=== PATIENT | female | born 1955 | race Two or more races ===

== ENCOUNTER 2017-11-02 10:10 | Outpatient (CLI) | payer OTHER | END 2017-11-02 11:36 | disposition home or self-care (01) | LOC: MAMO-SONO 10:10 | DX: N62 Hypertrophy of breast (principal); Z12.31 Encounter for screening mammogram for malignant neoplasm of breast; E03.9 Hypothyroidism, unspecified ==

== ENCOUNTER → 2017-11-02 | Outpatient (CLI) | payer OTHER ==
[~2017-11-02] MED LIST: ANGELIQ 0.5 MG/1 TAB; ARTHROTEC 751 TAB.EC; DIOVAN160 M1; PROTONIX40 MG
== END | disposition home or self-care (01) ==
LOC: LAB 10:25
DX: I10 Essential (primary) hypertension (principal); E11.9 Type 2 diabetes mellitus without complications; E03.8 Other specified hypothyroidism; E78.2 Mixed hyperlipidemia; M81.0 Age-related osteoporosis without current pathological fracture

== ENCOUNTER 2018-02-11 09:52 | Outpatient (CLI) | payer OTHER | END 2018-02-11 09:54 | disposition home or self-care (01) | LOC: SONOGRAMA 09:52 | DX: E04.1 Nontoxic single thyroid nodule (principal) ==

== ENCOUNTER 2018-02-23 13:39 | Outpatient (CLI) | payer OTHER | END 2018-02-23 14:00 | disposition home or self-care (01) | LOC: NUCLEAR 13:39 | DX: M81.0 Age-related osteoporosis without current pathological fracture (principal) ==

== ENCOUNTER 2018-05-14 08:32 | Outpatient (CLI) | payer OTHER | END 2018-05-14 08:50 | disposition home or self-care (01) | LOC: NUCLEAR 08:32 | DX: I10 Essential (primary) hypertension (principal); R07.89 Other chest pain ==

== ENCOUNTER → 2018-05-14 | Outpatient (CLI) | payer OTHER | END | disposition home or self-care (01) | LOC: RAD 09:00 | DX: M12.88 Other specific arthropathies, not elsewhere classified, other specified site (principal); M19.90 Unspecified osteoarthritis, unspecified site ==

== ENCOUNTER 2018-07-14 09:09 | Outpatient (CLI) | payer OTHER | END 2018-07-14 15:31 | disposition home or self-care (01) | LOC: LAB 09:09 → RAD 14:58 → LAB 15:31 | DX: D68.8 Other specified coagulation defects (principal); E78.2 Mixed hyperlipidemia; N39.0 Urinary tract infection, site not specified; R07.89 Other chest pain; I10 Essential (primary) hypertension ==

== ENCOUNTER 2018-07-23 08:18 | Outpatient (CLI) | payer OTHER | END 2018-07-23 09:00 | disposition home or self-care (01) | LOC: NUCLEAR 08:18 | DX: I11.9 Hypertensive heart disease without heart failure (principal); R07.89 Other chest pain | CPT/HCPCS: 78452; 93017; A9500 ==

== ENCOUNTER 2019-03-17 14:27 | Outpatient (CLI) | payer OTHER | END 2019-03-17 14:31 | disposition home or self-care (01) | LOC: MAMO-SONO 14:27 | DX: Z12.31 Encounter for screening mammogram for malignant neoplasm of breast (principal); Z87.898 Personal history of other specified conditions; N63.11 Unspecified lump in the right breast, upper outer quadrant; N60.11 Diffuse cystic mastopathy of right breast; N60.12 Diffuse cystic mastopathy of left breast; E03.8 Other specified hypothyroidism ==

== ENCOUNTER 2019-06-28 16:22 | Emergency (ER) | payer OTHER ==
[~2019-06-28] VITALS: Ht 157.5 cm; Wt 73.5 kg
[2019-06-28] MEDS ORDERED: AVALIDE 300-121 EACH PO (17:08)
[2019-06-28] MEDS ORDERED: PROTONIX40 M1 PO (17:09)
[2019-06-28] MEDS ORDERED: FORTAMET1000 MG (17:09)
[2019-06-28] MEDS ORDERED: GLIMEPIRIDE4 MG (17:09)
[2019-06-28] MEDS ORDERED: SINGULAIR 10MG10 MG PO (17:09)
[2019-06-28] MEDS ORDERED: ALEGRA (17:10)
[2019-06-28] MEDS ORDERED: PEPCID AC20 MG PO (17:10)
[2019-06-28] MEDS ORDERED: LOVAZA1 GM PO (17:11)
[2019-06-28] MEDS ORDERED: LIPITOR40 MG PO (17:11)
== END 2019-06-28 20:32 | disposition home or self-care (01) ==
LOC: ER 16:22
DX: M25.561 Pain in right knee (principal)

== ENCOUNTER → 2019-06-29 | Outpatient (CLI) | payer OTHER ==
[~2019-06-29] MED LIST changes: +ALEGRA; +AVALIDE 300-121 EACH PO; +FORTAMET1000 MG; +GLIMEPIRIDE4 MG; +LIPITOR40 MG PO; +LOVAZA1 GM PO; +PEPCID AC20 MG PO; +PROTONIX40 M1 PO; +SINGULAIR 10MG10 MG PO
== END | disposition home or self-care (01) ==
LOC: SONOGRAMA 13:54
DX: S83.91XA Sprain of unspecified site of right knee, initial encounter (principal)

== ENCOUNTER → 2021-01-03 08:22 | Outpatient (CLI) | payer OTHER | END | disposition home or self-care (01) | LOC: LAB 07:52 | PROVIDERS: ATTEND Internal Medicine Cardiovascular Disease | DX: I10 Essential (primary) hypertension (principal); E11.9 Type 2 diabetes mellitus without complications; E03.8 Other specified hypothyroidism; E78.2 Mixed hyperlipidemia; Z12.11 Encounter for screening for malignant neoplasm of colon; E55.9 Vitamin D deficiency, unspecified ==

== ENCOUNTER 2021-01-03 12:38 | Outpatient (CLI) | payer OTHER | END 2021-01-03 12:39 | disposition home or self-care (01) | LOC: NUCLEAR 12:38 | PROVIDERS: ATTEND Internal Medicine Cardiovascular Disease | DX: M81.0 Age-related osteoporosis without current pathological fracture (principal); E55.9 Vitamin D deficiency, unspecified; E11.9 Type 2 diabetes mellitus without complications ==

== ENCOUNTER 2021-01-03 13:31 | Outpatient (CLI) | payer OTHER | END 2021-01-03 13:37 | disposition home or self-care (01) | LOC: MAMO-SONO 13:31 | PROVIDERS: ATTEND Internal Medicine Cardiovascular Disease | DX: E04.2 Nontoxic multinodular goiter (principal); Z12.31 Encounter for screening mammogram for malignant neoplasm of breast; E03.8 Other specified hypothyroidism; N64.59 Other signs and symptoms in breast ==

== ENCOUNTER 2021-02-07 10:29 | Outpatient (CLI) | payer OTHER | END 2021-02-07 10:32 | disposition home or self-care (01) | LOC: SONOGRAMA 10:29 | PROVIDERS: ATTEND Internal Medicine Cardiovascular Disease | DX: R10.84 Generalized abdominal pain (principal) ==

== ENCOUNTER 2021-03-25 08:58 | Outpatient (CLI) | payer OTHER | END 2021-03-25 09:03 | disposition home or self-care (01) | LOC: SONOGRAMA 08:58 | PROVIDERS: ATTEND Pathology Anatomic Pathology & Clinical Pathology | DX: E04.8 Other specified nontoxic goiter (principal); D34 Benign neoplasm of thyroid gland ==

== ENCOUNTER 2022-03-18 16:19 | Emergency (ER) | payer OTHER ==
[~2022-03-18] VITALS: Ht 154.9 cm; Wt 68.9 kg
== END 2022-03-18 19:33 | disposition left against medical advice (07) ==
LOC: ER 16:19
DX: R00.2 Palpitations (principal); Z88.0 Allergy status to penicillin; J45.909 Unspecified asthma, uncomplicated; E78.00 Pure hypercholesterolemia, unspecified; I10 Essential (primary) hypertension

== ENCOUNTER 2022-05-26 11:09 | Outpatient (CLI) | payer OTHER | END 2022-05-26 11:15 | disposition home or self-care (01) | LOC: MAMO-SONO 11:09 | PROVIDERS: ATTEND Internal Medicine Cardiovascular Disease | DX: Z12.31 Encounter for screening mammogram for malignant neoplasm of breast (principal); E03.9 Hypothyroidism, unspecified; N63.11 Unspecified lump in the right breast, upper outer quadrant ==

== ENCOUNTER 2023-03-30 13:33 | Outpatient (CLI) | payer OTHER | END 2023-03-30 13:40 | disposition home or self-care (01) | LOC: SONOGRAMA 13:33 | PROVIDERS: ATTEND Internal Medicine Cardiovascular Disease | DX: M12.9 Arthropathy, unspecified (principal) ==

== ENCOUNTER 2024-02-22 14:04 | Outpatient (CLI) | payer OTHER | END 2024-02-22 14:09 | disposition home or self-care (01) | LOC: NUCLEAR 14:04 | PROVIDERS: ATTEND Internal Medicine Cardiovascular Disease | DX: M81.0 Age-related osteoporosis without current pathological fracture (principal); E55.9 Vitamin D deficiency, unspecified ==

== ENCOUNTER 2024-02-22 16:51 | Outpatient (CLI) | payer OTHER | END 2024-02-22 16:56 | disposition home or self-care (01) | LOC: MAMO-SONO 16:51 | PROVIDERS: ATTEND Internal Medicine Cardiovascular Disease | DX: N60.11 Diffuse cystic mastopathy of right breast (principal); N60.12 Diffuse cystic mastopathy of left breast; Z12.31 Encounter for screening mammogram for malignant neoplasm of breast; E04.2 Nontoxic multinodular goiter ==

== ENCOUNTER 2024-07-18 10:32 | Outpatient (CLI) | payer OTHER | END 2024-07-18 10:33 | disposition home or self-care (01) | LOC: NUCLEAR 10:32 | PROVIDERS: ATTEND Internal Medicine Cardiovascular Disease | DX: I87.2 Venous insufficiency (chronic) (peripheral) (principal) ==

== ENCOUNTER 2024-07-18 13:58 | Outpatient (CLI) | payer OTHER | END 2024-07-18 14:00 | disposition home or self-care (01) | LOC: RAD 13:58 | PROVIDERS: ATTEND Internal Medicine Cardiovascular Disease | DX: M12.9 Arthropathy, unspecified (principal) ==

== ENCOUNTER 2024-09-19 15:12 | Outpatient (CLI) | payer OTHER | END 2024-09-19 15:17 | disposition home or self-care (01) | LOC: RAD 15:12 | DX: M54.16 Radiculopathy, lumbar region (principal); M21.372 Foot drop, left foot; M25.562 Pain in left knee | CPT/HCPCS: 72148 ==

== ENCOUNTER 2025-04-04 07:51 | Outpatient (CLI) | payer OTHER | END 2025-04-04 07:52 | disposition home or self-care (01) | LOC: MAMO-SONO 07:51 | PROVIDERS: ATTEND Internal Medicine Cardiovascular Disease | DX: N60.11 Diffuse cystic mastopathy of right breast (principal); N60.12 Diffuse cystic mastopathy of left breast; Z12.31 Encounter for screening mammogram for malignant neoplasm of breast ==